=== PATIENT | male | born 1960 | race Caucasian/White ===

== ENCOUNTER 2022-08-30 05:25 | Day surgery (SDC) | payer OTHER ==
[~2022-08-30] VITALS: Ht 170.2 cm; Wt 70.3 kg
[2022-08-30] MEDS ORDERED: TRAMADOL HCL50 MG PO (09:47)
== END 2022-08-30 13:25 | disposition home or self-care (01) ==
LOC: CIR.AMB 05:25
PROVIDERS: ATTEND Surgery
DX: N47.1 Phimosis (principal); N48.6 Induration penis plastica; Z20.822 Contact with and (suspected) exposure to COVID-19; F17.210 Nicotine dependence, cigarettes, uncomplicated